=== PATIENT | female | born 1985 | race Caucasian/White ===

== ENCOUNTER 2017-05-29 07:52 | Emergency (ER) | payer OTHER ==
[~2017-05-29 07:52] MED LIST: ATI0.5 PO; COL100 PO; CYMBALTA30 M1 PO; DIL2 PO; DILANTIN100 M1 PO; DILANTIN100 MG PO; ELA25 PO; METHIMAZOLE5 MG PO; MIRALAX17 GM/Dose PO; NOR10T PO; NORCO1 TA2 PO; NORTHYX20 MG PO; ONDANSETRON4 M3 PO; PLAQUENIL200 MG PO; PRI20 PO; PRILOSEC20 MG PO; PROPANOLOL; RANITIDINE 7575 MG PO; SEN PO; SEROQUEL100 MG PO; TAPAZOLE10 MG PO; Z PO; ZANTAC 150150 MG PO; ZES20 PO; [UNRECOGNIZED DRUG - OTHER]
[2017-05-29 09:52] VITALS: BP 122/70
== END 2017-05-29 09:52 | disposition home or self-care (01) ==
LOC: ED 07:52
DX: S46.912A Strain of unspecified muscle, fascia and tendon at shoulder and upper arm level, left arm, initial encounter (principal); M32.9 Systemic lupus erythematosus, unspecified; I10 Essential (primary) hypertension; E03.9 Hypothyroidism, unspecified; Z88.5 Allergy status to narcotic agent; Z88.0 Allergy status to penicillin; Z79.899 Other long term (current) drug therapy; X50.0XXA Overexertion from strenuous movement or load, initial encounter; X50.9XXA Other and unspecified overexertion or strenuous movements or postures, initial encounter; Y93.89 Activity, other specified; Y92.39 Other specified sports and athletic area as the place of occurrence of the external cause; Y99.8 Other external cause status

== ENCOUNTER 2018-06-22 00:30 | Emergency (ER) | payer OTHER ==
[~2018-06-22] VITALS: Ht 154.9 cm; Wt 45.8 kg
[2018-06-22 00:39] VITALS: Ht 154.9 cm; Wt 45.8 kg
[2018-06-22 03:53] VITALS: BP 121/78
== END 2018-06-22 03:53 | disposition home or self-care (01) ==
LOC: ED 00:30
DX: J40 Bronchitis, not specified as acute or chronic (principal); I10 Essential (primary) hypertension; L93.0 Discoid lupus erythematosus; Z88.5 Allergy status to narcotic agent; Z88.1 Allergy status to other antibiotic agents
CPT/HCPCS: J1885; J7512; Q0092

== ENCOUNTER 2018-06-27 19:40 | Emergency (ER) | payer OTHER ==
[~2018-06-27] VITALS: Ht 154.9 cm; Wt 46.3 kg
[2018-06-27 19:47] VITALS: Ht 154.9 cm; Wt 46.3 kg
[2018-06-27 20:30] LABS: BASOPHIL % 0.2 % (0-2); PLATELET COUNT 341 x10^3mcL (130-400); RED CELL DISTRIBUTION WIDTH 13.1 % (11.5-14.5)
[2018-06-27 21:02] LABS: CALCIUM 8.8 mg/dL (8.5-10.1); CARBON DIOXIDE 25.5 mmol/L (21-32); CHLORIDE SERUM 101 mmol/L (98-107); CREATININE SERUM 0.8 mg/dL (0.6-1.0); GFR1 > 60 mL/min; GLUCOSE SERUM 85 mg/dL (74-106); SODIUM SERUM 138 mmol/L (136-145)
[2018-06-27 21:07] LABS: ALBUMIN 3.7 g/dL (3.4-5.0); ALKALINE PHOSPHATASE 100 U/L (46-116); ALT/SGPT 21 U/L (14-59); AST/SGOT 13 U/L (15-37); BILIRUBIN TOTAL 0.2 mg/dL (0.20-1.00); TOTAL PROTEIN, SERUM 7.5 g/dL (6.4-8.2)
[2018-06-27 21:42] LABS: microscopic required? YES; urine erythrocyte TRACE (NEGATIVE)
[2018-06-27 22:31] VITALS: BP 109/73
== END 2018-06-27 22:31 | disposition home or self-care (01) ==
LOC: ED 19:40
PROVIDERS: Emergency Medicine
DX: J98.01 Acute bronchospasm (principal); I10 Essential (primary) hypertension; M79.7 Fibromyalgia; Z88.5 Allergy status to narcotic agent; Z88.1 Allergy status to other antibiotic agents
CPT/HCPCS: 36415; 36600; 83880; J7030; J7613; Q0092

== ENCOUNTER 2018-08-23 05:26 | Emergency (ER) | payer OTHER ==
[~2018-08-23] VITALS: Ht 154.9 cm; Wt 47.6 kg
[2018-08-23 05:36] VITALS: Ht 154.9 cm; Wt 47.6 kg
[2018-08-23 07:01] VITALS: BP 116/76
== END 2018-08-23 07:01 | disposition home or self-care (01) ==
LOC: ED 05:26
DX: H10.31 Unspecified acute conjunctivitis, right eye (principal); I10 Essential (primary) hypertension; E05.90 Thyrotoxicosis, unspecified without thyrotoxic crisis or storm; R56.9 Unspecified convulsions

== ENCOUNTER 2018-10-01 05:34 | Emergency (ER) | payer OTHER ==
[~2018-10-01] VITALS: Ht 154.9 cm; Wt 49.9 kg
[2018-10-01 09:25] VITALS: BP 138/82
== END 2018-10-01 09:26 | disposition home or self-care (01) ==
LOC: ED 05:34
DX: H16.001 Unspecified corneal ulcer, right eye (principal); I10 Essential (primary) hypertension; M32.9 Systemic lupus erythematosus, unspecified; M79.7 Fibromyalgia; E05.90 Thyrotoxicosis, unspecified without thyrotoxic crisis or storm; Z88.5 Allergy status to narcotic agent; Z88.1 Allergy status to other antibiotic agents

== ENCOUNTER 2019-03-07 22:35 | Emergency (ER) | payer OTHER ==
[~2019-03-07] VITALS: Ht 154.9 cm; Wt 48.1 kg
[2019-03-07 22:41] VITALS: Ht 154.9 cm; Wt 48.1 kg
[2019-03-07 23:12] LABS: BASOPHIL % 0.6 % (0-2); PLATELET COUNT 369 x10^3mcL (130-400)
[2019-03-07 23:13] LABS: RED CELL DISTRIBUTION WIDTH 16.8 % (11.5-14.5)
[2019-03-08 00:09] LABS: UA SPECIFIC GRAVITY 1.025 (1.005-1.035); microscopic required? YES
[2019-03-08 00:10] LABS: urine erythrocyte 3+ (NEGATIVE)
[2019-03-08 02:01] VITALS: BP 117/63
== END 2019-03-08 02:01 | disposition home or self-care (01) ==
LOC: ED 22:35
PROVIDERS: Emergency Medicine
DX: R10.32 Left lower quadrant pain (principal); I10 Essential (primary) hypertension; M32.9 Systemic lupus erythematosus, unspecified; M79.7 Fibromyalgia; E03.9 Hypothyroidism, unspecified; Z88.6 Allergy status to analgesic agent; Z88.1 Allergy status to other antibiotic agents
CPT/HCPCS: 36415; J1885